=== PATIENT | female | born 1970 | race Caucasian/White ===

== ENCOUNTER 2019-02-18 10:47 | Day surgery (SDC) | payer OTHER, SELFPAY ==
[2019-02-18] VITALS (7 sets, daily range): BP systolic 106–117; BP diastolic 71–87; PULSE 77–90; RESP 16; TEMP 36.1–36.8; O2SAT 95–100; BMI 32.5
[2019-02-18 11:16] LABS: Internal QC Validated? YES +Cl - CLEAR BKGD; Pregnancy, Urine Negative Negative
[2019-02-18] MEDS: Lactated Ringers 1,000 ML 100 ML IV (11:24)
[2019-02-18] MEDS: Cefazolin 2 GM in 0.9% Normal Saline 100 ML IV (13:53)
--- NOTE | 2019-02-18 14:21 | PCM.OPRPT ---
Problem List (1) Urgency of micturition Status: Acute (2) Frequency of micturition Status: Acute (3) Dyspareunia Status: Acute Report of Operation Date of Procedure: 02/18/19 Pre-Operative Diagnosis: Urinary urgency, frequency, UTIs, dyspareunia Post-Operative Diagnosis: Same Surgery/Procedure Performed:: Cystoscopy, hydrodistention, pelvic exam under anesthesia Type of Anesthesia:: General Estimated Blood Loss (mL): 2cc Description of Procedure: The patient is a 48-year-old female with psoriatic arthritis who developed significant urinary urgency, frequency, and has been treated for multiple urinary tract infections over the course of years. She presents to the office for further evaluation and treatment. After discussing the risks benefits and alternatives, informed consent was obtained to proceed with a pelvic exam and cystoscopy, possible hydrodistention under anesthesia. She was taken to the operating room and placed on the operating room table. Anesthesia monitored the head, neck, airway, IV access and vital signs throughout the case. Once anesthesia was a probably administered she was placed into dorsal lithotomy position was prepped and draped in usual sterile fashion. There is anterior vaginal wall laxity on pelvic examination and no trigger points identified. The strings for her IUD are palpable. The urethral meatus is normal. Upon entry into the urinary bladder cystoscopy was performed and the entirety of the bladder mucosa was visualized. There were no masses, ulcerations or other abnormalities identified in the mucosa. The bladder was then filled to capacity and left to sit for 2 minutes. Capacity was measured at approximately 450 cc. Upon reentry there were no glomerulations but increase in injection. The bladder was weak refilled and left to sit for 2 minutes. Capacity at this point was measured at 600 cc. The patient was awakened and taken to the recovery room in good condition. There were no complications during the procedure. Grafts/Implants Used: None - Complications None - Admit VTE Documentation VTE Present on Admission: Yes VTE Mechan Device Prophylaxis: SCD's VTE Pharm Prophylaxis ordered?: No Reason prophylaxis not ordered:: Treatment Not Indicated
--- NOTE | 2019-02-18 14:29 | PCM.DC.URO ---
Discharge Diet: No Restrictions Discharge Activity: May not drive while taking narcotic pain medications. Call your doctor if you observe: Fever of 101 or Higher, Inability to urinate, Shortness of breath, Chest pain, Calf discomfort, Uncontrolled pain Allergies/Adverse Reactions: Allergies acetaminophen [From Percocet] Allergy (Verified 02/17/19 08:49) Itching etanercept [From Enbrel] Allergy (Verified 02/17/19 08:49) Swelling oxycodone [From Percocet] Allergy (Verified 02/17/19 08:49) Itching Medications to take at Discharge Amour Thyroid 90 mcg PO DAILY 02/17/19 Bupropion HCl [Wellbutrin Xl] 150 mg PO DAILY 02/17/19 Famotidine [Pepcid] 20 mg PO BID 02/17/19 Infliximab [Remicade] 500 - 600 mg IV QMONTH 02/17/19 Levonorgesterol [Mirena] 1 ea IY X1 02/17/19 Methenam/Sod Phos/Mblue/Hyoscy [Urogesic-Blue Tablet] 1 ea PO 4X/DAY PRN 02/17/19 Trospium Chloride [Sanctura Xr] 60 mg PO DAILY 02/17/19 Cephalexin [Keflex] 500 mg PO Q12 3 Days #6 cap 02/18/19 Hydrocodone Bitart/Apap 5-325 [Henderson 5MG-325MG] 1 tab PO Q4H PRN PRN 7 Days #10 tab 02/18/19 Ondansetron [Zofran] 8 mg PO Q8H PRN PRN 7 Days #20 tab 02/18/19 The following prescriptions were given: Cephalexin [Keflex] 500 mg PO Q12 3 Days #6 cap Prescription Printed Hydrocodone Bitart/Apap 5-325 [Henderson 5MG-325MG] 1 tab PO Q4H PRN PRN 7 Days #10 tab PRN Reason: Pain Prescription Printed Ondansetron [Zofran] 8 mg PO Q8H PRN PRN 7 Days #20 tab PRN Reason: Nausea Prescription Printed Primary Care Physician: PENNY GOTTI [Other] Test Results: Test results from this visit will be discussed in further detail at your follow-up appointment, if applicable. Please Follow Up With: Lavern Cottrell MD When: call for appt to be seen in 2-3 weeks Proposed Discharge Date: 02/18/19
[2019-02-18] MEDS: HYDROcodone Bitartrate/Apap 5/325 Tablet PO (15:43)
== END 2019-02-18 16:19 | disposition home or self-care (01) ==
LOC: SDC 10:48 → AC 10:53
PROVIDERS: Anesthesiology; Referring Provider Urology; Visit Provider Urology
PROC: 0T7B7ZZ Dilation of Bladder, Via Natural or Artificial Opening (ICD-10-PCS; CPT 52000; principal; 2019-02-18 12:20)
DX: N39.46 Mixed incontinence (principal); R35.0 Frequency of micturition; N94.10 Unspecified dyspareunia; R35.1 Nocturia; R10.2 Pelvic and perineal pain; R39.82 Chronic bladder pain; G89.29 Other chronic pain; M06.9 Rheumatoid arthritis, unspecified; L40.50 Arthropathic psoriasis, unspecified; F32.9 Major depressive disorder, single episode, unspecified; E06.9 Thyroiditis, unspecified; Z87.440 Personal history of urinary (tract) infections; Z79.899 Other long term (current) drug therapy
CPT/HCPCS: 00910; 52000; 81025; J7120; J2405